=== PATIENT | female | born 1960 | race Caucasian/White ===

== ENCOUNTER → 2017-04-06 | Outpatient (CLI) | payer MEDICAID | LOC: MC.RAD 13:00 | DX: Z12.31 Encounter for screening mammogram for malignant neoplasm of breast (principal); N64.89 Other specified disorders of breast ==

== ENCOUNTER → 2017-04-13 | Outpatient (CLI) | payer MEDICAID | LOC: MC.RAD 04-11 13:00 | DX: N64.89 Other specified disorders of breast (principal) ==

== ENCOUNTER → 2018-05-21 | Outpatient (CLI) | payer OTHER | LOC: MC.RAD 08:45 | DX: Z12.31 Encounter for screening mammogram for malignant neoplasm of breast (principal) ==

== ENCOUNTER → 2019-07-05 | Outpatient (CLI) | payer OTHER | LOC: MC.RAD 07:44 | DX: Z12.31 Encounter for screening mammogram for malignant neoplasm of breast (principal) ==

== ENCOUNTER 2020-07-17 09:15 | Outpatient (RCR) | payer MEDICAID | END 2020-09-14 | disposition still patient (30) | LOC: WSPT | DX: M25.511 Pain in right shoulder (principal) ==

== ENCOUNTER → 2020-08-04 | Outpatient (CLI) | payer MEDICAID | LOC: MC.RAD 07-22 08:15 | DX: Z12.31 Encounter for screening mammogram for malignant neoplasm of breast (principal) ==